=== PATIENT | female | born 1970 | race Caucasian/White ===

== ENCOUNTER → 2016-07-31 | Outpatient (CLI) | payer BC ==
[2016-07-31 09:42] VITALS: BP 127/86; PULSE 101; RESP 20; TEMP 98.8; BMI 34.9
--- NOTE | 2016-07-31 09:48 | P.PN ---
Subjective Principal diagnosis: Status post laparoscopic sleeve gastrectomy 45 years old female presents for bariatric surgery consultation. She had laparoscopic sleeve gastrectomy. Her comorbid conditions include obstructive sleep apnea on CPAP, hypertension, anxiety. Reports no nausea or vomiting. Normal BMs. No heartburn. No new complaints Height 5 feet 4 inches, ideal body weight 54.4 KG Preoperative visit #1, 04/24/2016, weight 99.79 KG, BMI 37.8 Preoperative visit #2, 06/05/2016, weight 102.2 KG, BMI 38.7 Laparoscopic sleeve gastrectomy 06/26/2016 Postoperative visit #1 07/03/2016, weight 96.16KG, BMI 36.4 Postoperative visit #2 07/31/2016, weight 92.17KG, BMI 34.9 Review of Systems Constitutional: Denies fever, weight loss or loss of appetite HEENT: No difficulty in vision or hearing. Denies dysphagia. Cardiovascular: Denies chest pain, palpitations, dizziness, shortness of breath. Respiratory: No cough or shortness of breath Gastrointestinal: No recent change in bowel habits, no abdominal pain, no nausea or vomiting. Integumentary: No skin ulcers or breakdown Genitourinary: No urinary incontinence, hematuria or dysuria Neurologic: No seizures, denies weakness in upper or lower extremities Past Medical History Past Medical History: GERD/Reflux, Hypertension, Sleep Apnea/CPAP/BIPAP Additional Past Medical History / Comment(s): UPPER BACK PAIN (C3-4) History of Any Multi-Drug Resistant Organisms: None Reported Past Surgical History: Section, Cholecystectomy, Orthopedic Surgery Additional Past Surgical History / Comment(s): RIGHT GREAT TOE BONE SPUR, C- SECTION X2, BILATERAL CARPAL TUNNEL, IUD Past Anesthesia/Blood Transfusion Reactions: No Reported Reaction Past Psychological History: Anxiety Smoking Status: Never smoker Past Alcohol Use History: Rare Past Drug Use History: None Reported - Past Family History Mother Family Medical History: Hypertension Additional Family Medical History / Comment(s): MOTHERS SIDE OF FAMILY IS HEAVILY DIAGNOSED WITH DM Father Family Medical History: CVA/TIA, Hypertension, Myocardial Infarction ([place]) Brother(s) Family Medical History: Cancer Objective - Vital Signs Vital signs: Vital Signs Temp 98.8 F 07/31/16 09:33 Pulse 101 H 07/31/16 09:33 Resp 20 07/31/16 09:33 BP 127/86 07/31/16 09:33 Pulse Ox Intake & Output 07/30/16 07/31/16 07/31/16 18:59 06:59 18:59 Weight 92.17 kg - Exam General: Patient is alert and oriented to time, place and person and cooperative with exam. HEENT: No pallor, no icterus, no thyroid enlargement, no cervical lymphadenopathy. Chest: Bilateral equal breath sounds present. No wheezes, no crackles. Cardiovascular: Regular rate and rhythm. Abdomen: Soft, nontender, nondistended. No surgical site infection Integumentary: Bilateral lower extremity chronic venous dermatitis. No active ulcers or discharge. Neurologic: Cranial nerves II-XII intact. Strength upper and lower extremities 5/5. No focal neurologic deficits. Gait is normal. Psychiatric: No anxiety or psychosis. No suicidal thoughts. Assessment and Plan (1) Depression Status: Acute (2) Hypercholesterolemia with hypertriglyceridemia Status: Acute (3) Hypertension Status: Acute (4) Obesity (BMI 30-39.9) Status: Acute (5) Sleep apnea Status: Acute (6) Vitamin D deficiency Status: Acute Plan: Check labs Daily MVI Follow up in 3 months postsurgery Increase physical activity Tachycardia- may consider beta alexa . Deferred to PCP
[2016-07-31 10:54] LABS: CH 30.1; CHCM 34.3; HCT 42.2 % (34.0-46.0); HDW 2.88; MCH 29.3 pg (25.0-35.0); MCHC 33.3 g/dL (31.0-37.0); MCV 88.1 fL (80.0-100.0); Mean Platelet Volume 7.7; RBC 4.79 m/uL (3.80-5.40); RDW 12.9 % (11.5-15.5); WBC 5.9 k/uL (3.8-10.6)
[2016-07-31 11:19] LABS: ALT 47 U/L (9-52); AST 30 U/L (14-36); Alkaline Phosphatase 68 U/L (38-126); Anion Gap 13 mmol/L; Blood Urea Nitrogen 14 mg/dL (7-17); Calcium 10.6 mg/dL (8.4-10.2); Carbon Dioxide 28 mmol/L (22-30); Chloride 99 mmol/L (98-107); Glucose 107 mg/dL (74-99); Non-African American GFR(MDRD) 59 (>60 ml/min/1.73 sqM); Potassium 4.2 mmol/L (3.5-5.1); Sodium 140 mmol/L (137-145); Total Bilirubin 0.9 mg/dL (0.2-1.3)
[2016-07-31 11:27] LABS: Prealbumin 31 mg/dL (18-36)
== END | disposition home or self-care (01) ==
LOC: BARWHC3 09:04
PROVIDERS: ATTEND Surgery
DX: Z48.815 Encounter for surgical aftercare following surgery on the digestive system (principal); Z98.84 Bariatric surgery status; E55.9 Vitamin D deficiency, unspecified; E66.9 Obesity, unspecified; Z68.34 Body mass index [BMI] 34.0-34.9, adult; Z71.3 Dietary counseling and surveillance; F32.9 Major depressive disorder, single episode, unspecified; E78.00 Pure hypercholesterolemia, unspecified; E78.1 Pure hyperglyceridemia; I10 Essential (primary) hypertension; G47.30 Sleep apnea, unspecified; R00.0 Tachycardia, unspecified
CPT/HCPCS: 80053; 82306; 84134; 85027; 99211

== ENCOUNTER → 2020-12-20 | Outpatient (CLI) | payer BC ==
[2020-12-20 16:17] LABS: INR 0.9 (<1.2); Prothrombin Time 9.7 sec (9.0-12.0)
[2020-12-20 16:18] LABS: Partial Thromboplastin Time 21.8 sec (22.0-30.0)
[2020-12-21 01:18] LABS: HCT 39.8 % (37.2-46.3); HGB 13.3 g/dL (12.0-15.0); MCHC 33.4 g/dL (32.0-37.0); MCV 89.8 fL (80.0-97.0); Mean Platelet Volume 11.4 fL (9.5-12.2); Platelet Count 310 X 10*3/uL (140-440); RBC 4.43 X 10*6/uL (4.10-5.20); RDW 12.6 % (11.5-14.5)
[2020-12-21 02:15] LABS: Hemoglobin A1C 6.3 % (4.0-6.0)
[2020-12-21 13:27] LABS: Zinc, Serum 77 ug/dL (60-130)
[2020-12-21 20:32] LABS: Ferritin 158.8 ng/mL (10.0-291.0)
[2020-12-21 21:24] LABS: % Iron Saturation 18.35 (12.00-45.00); ALT 30 U/L (8-44); AST 27 U/L (13-35); Albumin/Globulin Ratio 1.57 (1.60-3.17); Alkaline Phosphatase 76 U/L (41-126); Calcium 10.1 mg/dL (8.7-10.3); Chloride 103 mmol/L (96-109); Chol/HDL Ratio 6.95; Cholesterol 278 mg/dL (0-200); Folate, Serum >24.0 ng/mL; Glucose 148 mg/dL (70-110); Iron 60 ug/dL (50-170); Magnesium 2.2 mg/dL (1.5-2.4); Non-African American GFR(CKD) 64.7 (60.0-200.0); Phosphorus 4.7 mg/dL (2.4-5.1); Potassium 3.8 mmol/L (3.5-5.5); Sodium 144 mmol/L (135-145); Total Bilirubin 0.4 mg/dL (0.3-1.2); Total Iron Binding Capacity 327 ug/dL (228-460); Total Protein 7.7 g/dL (6.2-8.2)
[2020-12-22 06:45] LABS: Vitamin A 74 ug/dL (38-106)
[2020-12-22 07:06] LABS: Vit B1(Thiamine) 67 ug/L (38-122)
[2020-12-24 18:18] LABS: Selenium 130 mcg/L (63-160)
== END | disposition home or self-care (01) ==
LOC: LABWHC1 15:16
PROVIDERS: ATTEND Surgery Plastic and Reconstructive Surgery
DX: E66.01 Morbid (severe) obesity due to excess calories (principal); E89.1 Postprocedural hypoinsulinemia; D50.8 Other iron deficiency anemias; K90.89 Other intestinal malabsorption; E55.9 Vitamin D deficiency, unspecified; K74.1 Hepatic sclerosis; N19 Unspecified kidney failure; K50.90 Crohn's disease, unspecified, without complications; Z98.84 Bariatric surgery status
CPT/HCPCS: 36415; 80053; 80061; 82306; 82525; 82607; 82728; 82746; 83036; 83540; 83550; 83721; 83735; 83970; 84100; 84134; 84255; 84425; 84443; 84590; 84630; 85027; 85610; 85730

== ENCOUNTER → 2020-12-20 | Outpatient (CLI) | payer BC ==
[2020-12-20 16:43] VITALS: BMI 38.8
== END ==
LOC: BARWHC3 14:22
PROVIDERS: ATTEND Surgery Plastic and Reconstructive Surgery
DX: Z71.3 Dietary counseling and surveillance (principal)
CPT/HCPCS: 97803

== ENCOUNTER → 2020-12-27 | Outpatient (CLI) | payer BC ==
[2020-12-27 16:16] VITALS: BP 133/87; PULSE 98; RESP 16; TEMP 98.4; BMI 38.0
--- NOTE | 2020-12-27 17:13 | P.HPBAR ---
Bariatric H&P - History & Physicial H&P Date: 12/27/20 History & Physicial: Visit/CC: f/u Patient initial contact: Initial weight: 99.79 kg Initial weight in pounds: 220.00 Height: 5 ft 4 in Initial BMI: 37.8 Last weight: Current weight: 100.698 kg Current weight in pounds: 222.00 Current BMI: 38.0 Vinson body weight (based on NIH guidelines): 54.431 kg Excess body weight loss: The patient is a 50 year-old F who presents for Bariatric Assessment. DATE OF SERVICE: 12/27/2020 REASON FOR CONSULTATION: Initial bariatric evaluation. HISTORY OF PRESENT ILLNESS: Geri Jaramillo is a 50-year-old female who comes with lifelong morbid obesity. She had the sleeve gastrectomy by Dr. Story June 26, 2016. She is 5 years out. Her highest weight prior to the sleeve is 226 pounds. Lowest weight after the sleeve was 190 pounds. She comes in with weight re-gain and new medical co-morbidities. She has now developed diabetes type II. She also has hypertensive heart disease. She reports chronic nausea. She also complains of excessive flatulence and chronic diarrhea. She presents to me in consultation for management of weight re-gain, nausea and change in bowel habits. At height of 5 feet 4 inches, her ideal body weight is 144 pounds. Her highest weight was 226 pounds, body mass index of 38.9. Lowest weight of 190 pounds. She comes in 221 pounds. Her body mass index is 38.1. She is 77 pounds overweight. PAST MEDICAL HISTORY: 1. Morbid obesity due to excess calories 2. Body mass index of 38.9, initial 3. Hypertensive heart disease. 4. Obstructive sleep apnea 5. Diabetes type 2, non- insulin dependent 6. Hyperlipidemia. 7. Generalized anxiety disorder 8. Depressive disorder PAST SURGICAL HISTORY: 1. section 2. Cholecystectomy 3. Bilateral carpal tunnel 4. Bone spur removal right great toe HOME MEDICATIONS: Home Medications Medication Instructions Recorded Confirmed hydroCHLOROthiazide [Hydrodiuril] 25 mg PO DAILY 04/24/16 12/27/20 lisinopriL [Zestril] 10 mg PO DAILY 04/24/16 12/27/20 Cholecalciferol (Vitamin D3) 125 mcg PO DAILY 12/27/20 12/27/20 [Vitamin D3 (5000 Iu)] Escitalopram [Lexapro] 10 mg PO DAILY 12/27/20 12/27/20 Magnesium Oxide [Mag-Ox] 400 mg PO DAILY 12/27/20 12/27/20 Multivitamin with Iron 1 each PO DAILY 12/27/20 12/27/20 [Multivitamins with Iron] ALLERGIES: Allergies Allergy/AdvReac Type Severity Reaction Status Date / Time No Known Allergies Allergy Verified 12/27/20 16:35 SOCIAL HISTORY: Denies past tobacco use. FAMILY HISTORY: No family history of ulcerative colitis disease or Crohn's disease. Family history of morbid obesity. No lupus in the family. No reports of stomach or esophageal cancer. Diabetes in family. REVIEW OF ORGAN SYSTEMS: CONSTITUTIONAL: At height of 5 feet 4 inches, her ideal body weight is 144 pounds. Her highest weight was 226 pounds, body mass index of 38.9. Lowest weight of 190 pounds. She comes in 221 pounds. Her body mass index is 38.1. She is 77 pounds overweight. HEENT: Denies any active troubles with vision or hearing. ENDOCRINE: Has diabetes. No hypothyroidism. CARDIOVASCULAR: Denies reports of palpitations or heart attacks or chest pain. Has hypertensive heart disease. RESPIRATORY: Has sleep apnea. No recent pneumonia GASTROINTESTINAL: Denies any bright red blood per rectum. New diarrhea. No constipation. GENITOURINARY: Denies bladder urgency. No recent blood in urine MUSCULOSKELETAL: Occassional lower back pain and joint pain. NEURO: No headaches. No seizure disorders. PSYCH: Has depression. No suicidal ideation. Has anxiety. RHEUMATOLOGIC: No lupus. No rheumatoid arthritis. HEMATOLOGIC: Denies any abnormal bleeding or bruising. Denies history of DVTs. SKIN: No rash. No skin cancer. PHYSICAL EXAM: VITAL SIGNS: Height 5 foot 4 inches, weight 222 pounds. BMI 38.1 Vital Signs Temp 98.4 F 12/27/20 16:13 Pulse 98 12/27/20 16:13 Resp 16 12/27/20 16:13 BP 133/87 12/27/20 16:13 Pulse Ox GENERAL: Well-developed in no acute distress. HEENT: No scleral icterus. Extraocular movements grossly intact. Hears conversational speech. No nasal drainage. NECK: Supple without lymphadenopathy. CHEST: Nonlabored respirations with equal bilateral excursions. CARDIOVASCULAR: Regular rate and regular rhythm. Distal 2+ pulses. ABDOMEN: Obese, soft, nontender, nondistended. MUSCULOSKELETAL: No clubbing, cyanosis. NEURO: No focal or lateralizing signs. Cranial nerves 2 through 12 grossly within normal limits. PSYCH: Appropriate affect. Alert and oriented to person, place and time. SKIN: Good skin turgor. Well perfused. LABS: Reviewed. Hgb A1c elevated 6.3%. Triglycerides elevated 568. Cholesterol elevated 278. ASSESSMENT: 1. Morbid obesity due to excess calories 2. Body mass index of 38.9, initial 3. Hypertensive heart disease. 4. Obstructive sleep apnea 5. Diabetes type 2, non- insulin dependent 6. Hyperlipidemia. 7. Generalized anxiety disorder 8. Depressive disorder 9. Weight regain following bariatric procedure PLAN: 1. MyFitness Pal described to evaluate food patterns and portions. 2. Dietary surveillance and counseling was reviewed. Increased protein intake over 65 grams daily advised. 3. Recommend upper endoscopy for chronic nausea with sleeve due to gastroesophageal reflux disease and Celiac disease. She is elevated risk for perforation with a sleeve gastrectomy. 4. Recommend food diary journal to evaluate for food allergies 5. Recommend colonoscopy Thank you for this consultation. Past Medical History Past Medical History: Hyperlipidemia, Hypertension, Sleep Apnea/CPAP/BIPAP Additional Past Medical History / Comment(s): . History of Any Multi-Drug Resistant Organisms: None Reported Past Surgical History: Section, Cholecystectomy, Orthopedic Surgery Additional Past Surgical History / Comment(s): RIGHT GREAT TOE BONE SPUR, C- SECTION X2, BILATERAL CARPAL TUNNEL, IUD,06-26-16 GASTRIC SLEEVE Past Anesthesia/Blood Transfusion Reactions: Motion Sickness Past Psychological History: Anxiety Smoking Status: Unknown if ever smoked Past Alcohol Use History: Rare Past Drug Use History: None Reported - Past Family History Mother Family Medical History: Hypertension Additional Family Medical History / Comment(s): MOTHERS SIDE OF FAMILY IS ARABELLA GRISSOM DIAGNOSED WITH DM Father Family Medical History: CVA/TIA, Hypertension, Myocardial Infarction ([place]) Brother(s) Family Medical History: Cancer Additional Family Medical History / Comment(s): MOM HAD HYPERTENSION, DAD HAD HYPERTENSION, [place], STROKE Surgical - Exam Vital Signs Temp Pulse Resp BP 98.4 F 98 16 133/87 12/27/20 16:13 12/27/20 16:13 12/27/20 16:13 12/27/20 16:13 Bariatric Checklist Checklist: Plan: Checklist: EGD: 1. Hiatal hernia: 2. H. Pylori: HgbA1c: Vitamin D: Smoking: Never smoker Primary care physician referral: Daysi Persaud Psychiatry clearance: Cardiology clearance: Sleep study: Diet journal: VTE risk score: VTE risk level: Rehab needs at discharge:
== END ==
LOC: BARWHC3 15:37
PROVIDERS: ATTEND Surgery Plastic and Reconstructive Surgery
DX: E66.01 Morbid (severe) obesity due to excess calories (principal); I11.9 Hypertensive heart disease without heart failure; G47.33 Obstructive sleep apnea (adult) (pediatric); E11.9 Type 2 diabetes mellitus without complications; E78.5 Hyperlipidemia, unspecified; F41.1 Generalized anxiety disorder; F32.9 Major depressive disorder, single episode, unspecified; Z68.38 Body mass index [BMI] 38.0-38.9, adult; Z79.899 Other long term (current) drug therapy
CPT/HCPCS: 99211

== ENCOUNTER 2021-04-02 07:53 | Day surgery (SDC) | payer BC ==
--- NOTE | 2021-04-02 07:17 | P.GSHP ---
History of Present Illness H&P Date: 04/02/21 CHIEF COMPLAINT: GERD and colon screen HISTORY OF PRESENT ILLNESS: The patient is a 50-year-old female who presents with gastroesophageal reflux disease and need for colon screen. Upper and lower endoscopy were offered for further evaluation and management. PAST MEDICAL HISTORY: Please see list. PAST SURGICAL HISTORY: Please see list. MEDICATIONS: Please see list. ALLERGIES: Please see list. SOCIAL HISTORY: No illicit drug use FAMILY HISTORY: No reports of Crohn disease or ulcerative colitis. REVIEW OF ORGAN SYSTEMS: CONSTITUTIONAL: No reports of fevers or chills. GI: Denies any blood in stools or constipation. PHYSICAL EXAM: VITAL SIGNS: Stable GENERAL: Well-developed pleasant in no acute distress. HEENT: No scleral icterus. Extraocular movements grossly intact. Moist buccal mucosa. NECK: Supple without lymphadenopathy. CHEST: Unlabored respirations. Equal bilateral excursions. CARDIOVASCULAR: Regular rate and rhythm. Distal 2+ pulses. ABDOMEN: Soft, nondistended. MUSCULOSKELETAL: No clubbing, cyanosis, or edema. ASSESSMENT: 1. Gastroesophageal reflux disease 2. Colon screen. PLAN: 1. Recommend proceeding with an upper and lower endoscopy Past Medical History Past Medical History: Hyperlipidemia, Hypertension, Sleep Apnea/CPAP/BIPAP Additional Past Medical History / Comment(s): . History of Any Multi-Drug Resistant Organisms: None Reported Past Surgical History: Section, Cholecystectomy, Orthopedic Surgery Additional Past Surgical History / Comment(s): RIGHT GREAT TOE BONE SPUR, X2, BILATERAL CARPAL TUNNEL, IUD,12-16 GASTRIC SLEEVE Past Anesthesia/Blood Transfusion Reactions: Motion Sickness Past Psychological History: Anxiety Smoking Status: Unknown if ever smoked Past Alcohol Use History: Rare Past Drug Use History: None Reported - Past Family History Mother Family Medical History: Hypertension Additional Family Medical History / Comment(s): MOTHERS SIDE OF FAMILY IS HEAVILY DIAGNOSED WITH DM Father Family Medical History: CVA/TIA, Hypertension, Myocardial Infarction ([place]) Brother(s) Family Medical History: Cancer Additional Family Medical History / Comment(s): MOM HAD HYPERTENSION, DAD HAD HYPERTENSION, [place], STROKE Medications and Allergies Home Medications Medication Instructions Recorded Confirmed Type hydroCHLOROthiazide [Hydrodiuril] 25 mg PO DAILY 04/24/16 12/27/20 History lisinopriL [Zestril] 10 mg PO DAILY 04/24/16 12/27/20 History Cholecalciferol (Vitamin D3) 125 mcg PO DAILY 12/27/20 12/27/20 History [Vitamin D3 (5000 Iu)] Escitalopram [Lexapro] 10 mg PO DAILY 12/27/20 12/27/20 History Magnesium Oxide [Mag-Ox] 400 mg PO DAILY 12/27/20 12/27/20 History Multivitamin with Iron 1 each PO DAILY 12/27/20 12/27/20 History [Multivitamins with Iron] Allergies Allergy/AdvReac Type Severity Reaction Status Date / Time No Known Allergies Allergy Verified 12/27/20 16:35
[2021-04-02] MEDS ORDERED: LACTATED RINGERS 1,000 ML IV SCH (08:08)
[2021-04-02] MEDS ORDERED: ONDANSETRON 4 MG/2 ML VIAL ONE (08:27)
[2021-04-02 08:32] VITALS: TEMP 97.1
[2021-04-02] MEDS ORDERED: PROPOFOL 10 MG/ML 20 ML VIAL IV ONE (08:32)
[2021-04-02] MEDS ORDERED: LIDOCAINE 1% INJ 10MG/ML (20 ML MDV) ONE (08:32)
--- NOTE | 2021-04-02 08:57 | P.PCN ---
Date of Procedure: 04/02/21 Description of Procedure: PREOPERATIVE DIAGNOSIS: Gastroesophageal reflux disease. Morbid obesity. POSTOPERATIVE DIAGNOSIS: Morbid obesity. Gastritis. Gastric ulcers Gastroesophageal reflux disease with erosive esophagitis OPERATION: Esophagogastroduodenoscopy with biopsies along antrum and distal esophagus SURGEON: Wnada Saunders MD ANESTHESIA: MAC. INDICATIONS: The patient is a 50-year-old female who presents with a history of reflux disease. Benefits and risks of the procedure were described. Informed consent was obtained. DESCRIPTION: The patient was brought into the endoscopy suite and laid in the left lateral decubitus position. An Olympus gastroscope was passed along the posterior o ropharynx down to the distal esophagus where the squamocolumnar junction was encountered at 38 cm from the incisors. The stomach was entered and no bile reflux was found. Additional findings are listed below. Biopsies with cold forceps were obtained of the antrum. The first through third portion of the duodenum was examined and unremarkable. Retroflexion of the scope confirmed Hill grade 2 lower esophageal valve. The squamocolumnar junction demonstrated LA grade B erosive esophagitis. The stomach was desufflated. The patient tolerated the procedure well. FINDINGS: Squamocolumnar junction 38 cm from the incisors. Diaphragmatic hiatus at 38 cm. Hill grade 2 lower esophageal valve. LA grade B erosive esophagitis and acute ulceration with biopsy obtained No active duodenitis. Chronic gastritis with recent bleed Gastric ulcers along gastric cardia and antrum with biopsy obtained RECOMMENDATIONS: Upper endoscopy as needed.
--- NOTE | 2021-04-02 08:59 | P.PCN ---
Date of Procedure: 04/02/21 Description of Procedure: PREOPERATIVE DIAGNOSIS: Colonoscopy screening. POSTOPERATIVE DIAGNOSIS: Colonoscopy screening. Internal and external hemorrhoids grade 2 OPERATION: Colonoscopy to the cecum, ileocecal valve and appendiceal orifice. SURGEON: Wanda Saunders MD. ANESTHESIA: MAC. INDICATIONS: The patient is a 50-year-old female who presents for colonoscopy screening. Benefits and risks were described and informed consent was obtained. DESCRIPTION OF PROCEDURE: The patient had undergone Sutab prep. The patient had been brought into the operating room and laid in the left lateral decubitus position. After adequate intravenous sedation, the rectum was examined with 2% lidocaine jelly. Rxternal hemorrhoids were encountered. The rectal tone was within normal limits. No lesions were palpated in the rectal vault. An Olympus colonoscope was advanced until the cecum, ileocecal valve and appendiceal orifice were clearly viewed. The prep was excellent. No scattered diverticulosis was encountered. No colonic polyps were found. No evidence of focal colitis was found. Retroflexion of the scope demonstrated grade 2 internal hemorrhoids without active bleeding or inflammation. The colon was desufflated. The patient had tolerated the procedure well. Withdrawal time was over 6 minutes. FINDINGS: Aronchick preparation quality scale 1 (1-5) Internal hemorrhoids, grade 2 External prolapsed hemorrhoids, grade 2 No arteriovenous malformations. No adenomatous polyps. No focal colitis. RECOMMENDATIONS: Lower endoscopy in 10 years, 2030 Plan - Discharge Summary New Discharge Prescriptions: New Omeprazole [PriLOSEC] 40 mg PO DAILY #14 cap Continue hydroCHLOROthiazide [Hydrodiuril] 25 mg PO DAILY lisinopriL [Zestril] 10 mg PO DAILY Magnesium Oxide [Mag-Ox] 400 mg PO DAILY Escitalopram [Lexapro] 10 mg PO DAILY Cholecalciferol (Vitamin D3) [Vitamin D3 (5000 Iu)] 125 mcg PO DAILY Multivitamin with Iron [Multivitamins with Iron] 1 each PO DAILY Discharge Medication List hydroCHLOROthiazide [Hydrodiuril] 25 mg PO DAILY 04/24/16 [History] lisinopriL [Zestril] 10 mg PO DAILY 04/24/16 [History] Cholecalciferol (Vitamin D3) [Vitamin D3 (5000 Iu)] 125 mcg PO DAILY 12/27/20 [History] Escitalopram [Lexapro] 10 mg PO DAILY 12/27/20 [History] Magnesium Oxide [Mag-Ox] 400 mg PO DAILY 12/27/20 [History] Multivitamin with Iron [Multivitamins with Iron] 1 each PO DAILY 12/27/20 [History] Omeprazole [PriLOSEC] 40 mg PO DAILY #14 cap 04/02/21 [Rx] Follow up [facility]ment(s[facility]Ref[facility] [place] [place] [facility] [place] [facility] Patient Instructions/Handouts: Gastritis (DC), Diet for Stomach Ulcers and Gastritis (ED) Activity/Diet/Wound Care/Special Instructions: Repeat colonoscopy years2030 Discharge Disposition: HOME SELF-CARE
[2021-04-02 09:38] VITALS: BP 128/89; PULSE 80; RESP 16
== END 2021-04-02 09:38 | disposition home or self-care (01) ==
LOC: ORWHC2ENDO 07:53
PROVIDERS: ATTEND Surgery Plastic and Reconstructive Surgery
DX: K21.00 Gastro-esophageal reflux disease with esophagitis, without bleeding (principal); K25.9 Gastric ulcer, unspecified as acute or chronic, without hemorrhage or perforation; K29.50 Unspecified chronic gastritis without bleeding; K29.70 Gastritis, unspecified, without bleeding; K64.4 Residual hemorrhoidal skin tags; K64.8 Other hemorrhoids; E66.01 Morbid (severe) obesity due to excess calories; I10 Essential (primary) hypertension; E78.5 Hyperlipidemia, unspecified; K21.9 Gastro-esophageal reflux disease without esophagitis; T75.3XXA Motion sickness, initial encounter; Z79.890 Hormone replacement therapy; Z99.89 Dependence on other enabling machines and devices
CPT/HCPCS: 43239; 88305; J2405; J2001; J2704; G0121

== ENCOUNTER → 2021-05-09 | Outpatient (CLI) | payer BC ==
--- NOTE | 2021-05-09 09:47 | CT ---
EXAMINATION TYPE: CT abdomen pelvis w con DATE OF EXAM: 05/09/2021 COMPARISON: HISTORY: diarrhea, no weight loss, nonfunctioning gastric sleeve procedure from 2016 CT DLP: 1692.9 mGycm Automated exposure control for dose reduction was used. CONTRAST: CT scan of the abdomen pelvis is performed with IV Contrast, patient injected with 100 mL of Isovue 3 00. FINDINGS- LUNG BASES-lobulation to the right which is only partially included. CT chest recommended nodular den sity posterior segment right lower lobe measuring 9 mm. Subsegmental atelectasis bilaterally.. LIVER/GB-liver slightly reduced attenuation correlate for mild steatosis. Postcholecystectomy changes noted.. PANCREAS- No gross abnormality is seen. SPLEEN- No gross abnormality is seen. ADRENALS- No gross abnormality is seen. KIDNEYS/BLADDER-right kidney is markedly atrophic. No hydronephrosis bilaterally. Left kidney does de monstrate compensatory hypertrophy.. BOWEL-postsurgical changes involving the epigastrium stomach. Bowel gas pattern nonspecific obstructi on. Mild wall thickening of the right colon may be related to incomplete distention rather than colit is. No inflammatory changes.. LYMPH NODES- No greater than 1cm abdominal or pelvic lymph nodes areappreciated. OSSEOUS STRUCTURES-hypertrophic and degenerative change of the spine.. OTHER- aorta of normal caliber. IMPRESSION- 1. Postsurgical changes with nonspecific abdomen no obstruction. Mild wall thickening in the right co blake and could be related to incomplete distention correlate clinically to exclude a mild colitis. 2. Lobulation of the right hilum partially included on the exam recommend CT of the chest exclude twin nopathy. There is a 9 mm right lower lobe pulmonary nodule. 3. Atrophic right kidney with compensatory hypertrophy of the left kidney.
== END | disposition home or self-care (01) ==
LOC: RADCTMAIN 07:25
PROVIDERS: ATTEND Surgery Plastic and Reconstructive Surgery
DX: K63.89 Other specified diseases of intestine (principal); N26.1 Atrophy of kidney (terminal); R91.1 Solitary pulmonary nodule
CPT/HCPCS: 74177; Q9967

== ENCOUNTER → 2021-06-20 | Outpatient (CLI) | payer BC ==
--- NOTE | 2021-06-20 15:47 | P.BASOAP ---
Subjective Progress Note Date: 06/20/21 DATE OF SERVICE: 06/20/2021 CHIEF COMPLAINT: Status post sleeve gastrectomy HISTORY OF PRESENT ILLNESS: Geri Jaramillo is a 51-year-old female status post sleeve gastrectomy by Dr. Story June 26, 2016. She is 5 years out. She is looking into weight loss options. She is looking into 3 months of medical supervised. She has gastroesophageal reflux disease. At height of 5 feet 4 inches, her ideal body weight is 144 pounds. Her highest weight was 226 pounds, body mass index of 38.9. Lowest weight of 190 pounds. She comes in 227 pounds from 221 pounds, 3 months ago. She has gained 5 pounds in 3 months. Her body mass index is 39.0. She is 83 pounds overweight. PHYSICAL EXAM: VITAL SIGNS: Height 5 foot 4 inches, weight 227 pounds. BMI 39.0 Vital Signs Temp 98.0 F 06/20/21 17:47 Pulse 81 06/20/21 17:47 Resp 18 06/20/21 17:47 BP 133/82 06/20/21 17:47 Pulse Ox GENERAL: Well-developed in no acute distress. HEENT: No scleral icterus. Extraocular movements grossly intact. Hears conversational speech. No nasal drainage. NECK: Supple without lymphadenopathy. CHEST: Nonlabored respirations with equal bilateral excursions. CARDIOVASCULAR: Regular rate and rhythm. Distal 2+ pulses. ABDOMEN: Obese, soft, nontender, nondistended. MUSCULOSKELETAL: No clubbing, cyanosis. NEURO: No focal or lateralizing signs. Cranial nerves 2 through 12 grossly within normal limits. PSYCH: Appropriate affect. Alert and oriented to person, place and time. SKIN: Good skin turgor. Well perfused. STUDIES: CT of the abdomen and pelvis reviewed demonstrating sleeve gastrectomy appears dilated. Hypertrophy of the left kidney with atrophy of the right. This is my independent interpretation. ASSESSMENT: 1. Morbid obesity due to excess calories 2. Body mass index of 38.9, now 39.0 3. Hypertensive heart disease. 4. Obstructive sleep apnea 5. Diabetes type 2, non-insulin dependent 6. Hyperlipidemia. 7. Generalized anxiety disorder 8. Depressive disorder 9. Weight regain following bariatric procedure 10. Gastric ulcers 11. Gastroesophageal reflux disease 12. Generalized abdominal pain 13. Glucose intolerance, pre-diabetes 14. Status post sleeve gastrectomy PLAN: 1. Continue medical supervised weight loss at least 3 months. 2. Recommend psych assessment per original criteria. 3. May benefit from conversion to gastric bypass. Assessment/Plan Plan: Date: Initial Weight: 99.79 kg Initial BMI: Current Weight: Current BMI: Type of Surgery: Total Volume in Band: Previous Volume: Volume Removed: Volume Added: Band Size:
[2021-06-20 17:48] VITALS: BP 133/82; PULSE 81; RESP 18; TEMP 98; BMI 38.9
== END ==
LOC: BARWHC3 13:59
PROVIDERS: ATTEND Surgery Plastic and Reconstructive Surgery
DX: E66.01 Morbid (severe) obesity due to excess calories (principal); I11.9 Hypertensive heart disease without heart failure; G47.33 Obstructive sleep apnea (adult) (pediatric); E11.9 Type 2 diabetes mellitus without complications; E78.5 Hyperlipidemia, unspecified; F41.1 Generalized anxiety disorder; F32.A Depression, unspecified; K25.9 Gastric ulcer, unspecified as acute or chronic, without hemorrhage or perforation; K21.9 Gastro-esophageal reflux disease without esophagitis; Z98.84 Bariatric surgery status; Z68.39 Body mass index [BMI] 39.0-39.9, adult; Z79.84 Long term (current) use of oral hypoglycemic drugs; Z79.899 Other long term (current) drug therapy
CPT/HCPCS: 99211